=== PATIENT | female | born 1940 | race Caucasian/White ===

== ENCOUNTER 2017-12-07 05:22 | Day surgery (SDC) | payer OTHER ==
[~2017-12-07] VITALS: Ht 170.2 cm; Wt 63.5 kg
--- NOTE | ~2017-12-07 | S ---
[facility] [place] [address] SURGICAL PATH RPT PROCEDURE Name: SUZANNE POPE Room #: DEP [facility] M.R.#: [id number] Admission: 12/07/17 Date of : 42 Discharge: 12/07/17 Report #: [id number] Path Case #: [id number] PATHOLOGY REPORT COLLECTION DATE: 12/07/2017 RECEIVED DATE: 12/07/2017 SUBMITTING PHYS: Dr. Geraldo Ohara OTHER PHYS: Dr. Megn Bernard SPECIMEN(S) RECEIVED: PALLAVI * * * * * * * * * * * * FINAL DIAGNOSIS: "CLARKE", transbronchial biopsy: - Predominantly blood, peripheral blood elements and fibrin. - Scant benign bronchial epithelial cells noted; no intact bronchial wall or alveolated lung tissue present. COMMENT: Please see also the cytology specimen ([id number]). Clinical, radiographic and bronchoscopic correlation is required. (CLW:pit; 12/08/2017) PATHOLOGIST: Jayla Ruiz M.D. REPORT ELECTRONICALLY SIGNED BY: Jayla Ruiz M.D. DATE/TIME: 12/08/2017 22:29 * * * * * * * * * * * * GROSS PATHOLOGY: Received in formalin labeled "Suzanne Pope, RC BERRIOSL," are 6 distinct needle cores of morel soft tissue ranging from 0.1 to 0.2 cm in length, which are submitted entirely in cassette A1 through A3. (TSD; 12/07/2017) CLINICAL HISTORY: Endobronchial ultrasound, lung mass, see attached report INITIAL CPT CODE(S): A; 29829 Professional services performed by [facility] at [facility] [address], [place] [address] Technical services performed by [facility] at [address] [place] [address] [place] [address] SURGICAL PATH RPT PROCEDURE Name: SUZANNE POPE Room #: DEP [facility] Tin.#: [id number] Admission: 12/07/17 Date of : 42 Discharge: 12/07/17 Report #: [id number] Path Case #: [id number] [place] [address]. [facility] [address] [address] PHONE: [phone] DIRECTOR: Jaden Guerrero M.D. * * * END OF REPORT * * *
--- NOTE | ~2017-12-07 | CNG ---
[facility] [place] [address] CYTO-NONGYN REPORT PROCEDURE Name: SUZANNE POPE Room #: DEP [facility]..#: [id number] Admission: 12/07/17 Date of : 42 Discharge: 12/07/17 Report #: [id number] Path Case #: [id number] CYTOPATHOLOGY REPORT COLLECTION DATE: 12/07/2017 RECEIVED DATE: 12/07/2017 SUBMITTING PHYS: Dr. Geraldo Ohara OTHER PHYS: Dr. Meng Bernard CLINICAL HISTORY: Lung mass. See also [id number]. SPECIMEN(S) RECEIVED: A.Bronchoalveolar lavage, NOS B.Brushing, CLARKE C.Fine needle aspiration,TBNA 10L lymph node * * * * * * * * * * * * FINAL DIAGNOSIS: A. Lung, NOS, Bronchoalveolar lavage: - No malignant cells identified. - Reactive bronchial epithelial cells and alveolar macrophages present. B. Lung, CLARKE, Brushing: - No malignant cells identified. - Reactive bronchial epithelial cells present. C. Lymph node, 10 L, EBUS guided Fine needle aspiration: - No malignant cells identified. -Abundant lymphoid material and bronchial epithelial cells identified. PATHOLOGIST: Hannah Maldonado M.D. REPORT ELECTRONICALLY SIGNED BY: Hannah Maldonado M.D. DATE/TIME: 12/08/2017 15:34 * * * * * * * * * * * * GROSS PATHOLOGY: A. Bronchoalveolar lavage, NOS: The specimen is submitted unfixed, labeled "Suzanne Pope". Received by the Cytology Department is 13 mL of cloudy pink fluid. One ThinPrep slide was prepared. B. Brushing, CLARKE: The specimen is labeled "Suzanne Pope" and consists of a brush tip in fixative and five fixed slides. One ThinPrep slide was prepared. C. Fine needle aspiration,TBNA 10L lymph node: The specimen is labeled "Suzanne Pope" and consists of two H and E slides. Forty-two mL of cloudy reddish brown fluid in formalin from the needle rinse is also submitted and a formalin fixed cell block was prepared from this material. (mm 12.07.2017) IMMEDIATE EVALUATION: C. Fine needle aspiration,TBNA 10L lymph node: Per Dr. Maldonado, [place] [address] CYTO-NONGYN REPORT PROCEDURE Name: SUZANNE POPE Room #: DEP [facility] M.Marnie.#: [id number] Admission: 12/07/17 Date of : 42 Discharge: 12/07/17 Report #: [id number] Path Case #: [id number] Abundant lymphoid tissue consistent with sampling of lymph node. Few bronchial epithelial cells. Professional services performed under supervision of [facility] [employer] at [address] [place] [address] [place] [address]. MANAGER OF CUSTOMER BILLING(S): URIEL Blevins(ASCP) INITIAL CPT CODE(S): A; 36267 B; 11154 C; 90082, 45337, 45687 Professional services performed by [facility] at [facility] [address], [place] [address] Technical services performed by [facility] at [address] [place] [address], [address], [place] [address]. [facility], [address] [place] [address] PHONE: [phone] DIRECTOR: Jaden Guerrero M.D. * * * END OF REPORT * * *
--- NOTE | ~2017-12-07 | P ---
[facility] [place] [address] PROCEDURE REPORT Name: SUZANNE ESPARZA Room #: 150-9 [facility] M.R.#: [id number] Admission: 12/07/17 Attend Phys: Geraldo Ohara MD Discharge: Date of : 42 Report #: [id number] THIS REPORT FOR: //name// CC: Meng Ohara DATE OF SERVICE: 12/07/2017 PROCEDURE: Fiberoptic bronchoscopy with endobronchial ultrasound, sampling of level 10L lymph nodes as well as transbronchial and brush biopsies of the left upper lobe mass under general anesthesia. INDICATION: Left upper lobe mass, mediastinal lymphadenopathy, evaluate for staging with endobronchial ultrasound and biopsy. ASA classification class 2. PROCEDURE NOTATION: After discussing risks, benefits of planned procedure, she desired to proceed. After obtaining informed consent, she was taken by General Anesthesia Service to operating room 1 where she was placed under general endotracheal anesthesia. See their notes for details in this regard. An 8.5 endotracheal tube was in place and utilized. White light bronchoscopy was initially performed with some edema and narrowing of the more apical segment of the left upper lobe, but no other endobronchial disease was noted. No significant anatomic variation was noted. White light bronchoscope was removed, and the endobronchial ultrasound was inserted. All lymph node stations were evaluated. The following findings: The 11R lymph node was 0 mm, 10R lymph node 3.0. Level 7 lymph node 4.0 mm, 4R 3.0 mm, 4L no significant adenopathy noted. 10L revealed an 18 mm lymph node and 11L had a 5 mm lymph node. Because of these findings, a 22-gauge core needle was passed in the 10L lymph node using ultrasound guidance for 5 specimens. Rapid onsite pathology confirmed lymph node tissue. After five samples were collected and placed in formalin, the endobronchial ultrasound device was removed, and a white light bronchoscope was reinserted. Using fluoroscopic guidance, several brush and then forceps biopsies were obtained in the left upper lobe in the area of the cavitary lesion noted on imaging. The patient tolerated well. No noted complications. No significant blood loss. Total fluoroscopy time 2 minutes 33 seconds. We will await pathology findings. By: 1106 1522 Geraldo Ohara MD /nt
[~2017-12-07 05:22] MED LIST: ALLERGY RELIEF10 M5 PO; CARVEDILOL12.5 MG PO; CRESTOR20 MG PO; ESTRADIOL 1 MG T1 M1 PO; HYDROCHLOROTHIA25 M2 PO; KLOR-CON 1010 MEQ PO; LASIX 20 MG TAB20 MG PO; METFORMIN HCL500 MG PO; OMEPRAZOLE 20 M20 M1 PO; SYNTHROID88 MCG PO; VITAMIN B-12500 MCG PO; VITAMIN D-32000 UNIT PO; XANAX 0.5 MG0.5 MG PO
[2017-12-07 08:18] LABS: HEMATOCRIT 33.4 % (37.0-47.0); HEMOGLOBIN 11.2 gm/dL (12.0-15.0); MCH 28.1 pg (26.0-34.0); MCHC 33.4 g/dL (28.0-37.0); RBC 3.98 mil/uL (4.20-5.00); RDW 13.5 % (10.5-14.5); WBC 7.8 thou/uL (4.0-11.0)
[2017-12-07 08:21] VITALS: BP 138/69
[2017-12-07 08:26] LABS: CALCIUM 8.9 mg/dL (8.5-10.1); CREATININE 0.7 mg/dL (0.6-1.0); POTASSIUM 3.3 mmol/L (3.5-5.1)
[2017-12-07 08:29] LABS: PROTIME 10.2 Seconds (9.3-11.4)
== END 2017-12-07 12:55 | disposition home or self-care (01) ==
LOC: TBA 05:22 → OR 05:22
PROVIDERS: Internal Medicine Pulmonary Disease
DX: R59.1 Generalized enlarged lymph nodes (principal)
CPT/HCPCS: 50010; 62110; 62900; 70005

== ENCOUNTER → 2017-12-11 | Outpatient (CLI) | payer OTHER ==
[~2017-12-11] VITALS: Ht 162.6 cm; Wt 63.5 kg
--- NOTE | ~2017-12-11 | P ---
[facility] [place] [address] PROCEDURE REPORT Name: SUZANNE ESPARZA [id number] Admission: 12/11/17 Attend Phys: Jorge Decker Discharge: Date of : 42 Report #: [id number] THIS REPORT FOR: //name// CC: Meng Beyer DATE OF SERVICE: 12/11/2017 PROCEDURE PERFORMED: Colonoscopy with biopsies. HISTORY OF PRESENT ILLNESS: The patient is a 77-year-old female with a history of polyps as well as hemorrhoids, recently diagnosed with a lung mass. Biopsies were nonspecific apparently. She is unsure if her mother had a history of colon cancer. DESCRIPTION OF PROCEDURE: The risks and benefits of the procedure were explained to the patient, those risks including but not limited to bleeding, perforation, the risk of sedation. She understood these risks and gave informed consent. Sedation was given using propofol per anesthesia. Next, a digital rectal exam showed external hemorrhoids, otherwise normal. Next, using a standard Fujinon colonoscope, the scope was placed in the patient's anus and advanced under direct vision to the cecum. The overall prep was good. The cecum and ileocecal valve were normal in appearance. In the proximal ascending colon, a small 3 mm sessile polyp was noted. This was removed with cold forceps, otherwise normal. The transverse, descending and sigmoid colon were all normal. The rectal mucosa was normal. On retroflexion, no abnormalities were noted. Moderate to large external hemorrhoids were noted, nonbleeding. The scope was then withdrawn and the procedure terminated. The patient tolerated the procedure well. IMPRESSION: 1. Small colon polyp. 2. External hemorrhoids. 3. Otherwise, normal colonoscopy. RECOMMENDATIONS: 1. Await biopsy results. 2. If polyp is an adenoma, consider repeat colonoscopy in 5 years. 3. High-fiber diet and Analpram on a p.r.n. basis. [address] [address] PROCEDURE REPORT Name: CHRISTINAANIKASUZANNE Room #: REG [facility] Linda#: [id number] Admission: 12/11/17 Attend Phys: Jorge Decker Discharge: Date of : 42 Report #: [id number] Thank you for allowing me to participate in her care. <ELECTRONICALLY SIGNED> By: Jorge Beyer MD 12/11/17 1231 0940 1217 Jorge Beyer MD /nt
--- NOTE | ~2017-12-11 | S ---
[facility] [address] [place] [address] SURGICAL PATH RPT PROCEDURE Name: SUZANNE ESPARZA Room #: REG KYLE Mckeon#: [id number] Admission: 12/11/17 Date of : 42 Discharge: Report #: [id number] Path Case #: [id number] PATHOLOGY REPORT DRAFT COLLECTION DATE: 12/11/2017 RECEIVED DATE: 12/11/2017 SPECIMEN(S) RECEIVED: A.Ascending colon polyp bx
== END | disposition home or self-care (01) ==
LOC: GI 07:18
DX: Z09 Encounter for follow-up examination after completed treatment for conditions other than malignant neoplasm (principal); K63.5 Polyp of colon; K64.4 Residual hemorrhoidal skin tags; K21.9 Gastro-esophageal reflux disease without esophagitis; C34.90 Malignant neoplasm of unspecified part of unspecified bronchus or lung; I10 Essential (primary) hypertension; E11.9 Type 2 diabetes mellitus without complications; J43.9 Emphysema, unspecified; E03.9 Hypothyroidism, unspecified; E78.5 Hyperlipidemia, unspecified; F41.8 Other specified anxiety disorders; Z90.49 Acquired absence of other specified parts of digestive tract; Z90.710 Acquired absence of both cervix and uterus; Z87.891 Personal history of nicotine dependence; Z86.010 Personal history of colon polyps; Z87.19 Personal history of other diseases of the digestive system; Z79.899 Other long term (current) drug therapy; Z98.890 Other specified postprocedural states